=== PATIENT | female | born 1995 | race Caucasian/White ===

== ENCOUNTER 2018-05-16 17:42 | Emergency (ER) | payer MEDICAID ==
[~2018-05-16] VITALS: Ht 157.5 cm; Wt 47.6 kg
[2018-05-16 18:23] VITALS: BP 137/75
--- NOTE | 2018-05-16 19:54 | NUR ---
PT AMBULATED TO BED 5
--- NOTE | 2018-05-16 20:10 | NUR ---
PT BIB MOTHER C/O N/V/D, ORDOÑEZ. PT STATES SHE STARTED VOMITING 2 DAYS AGO, NO VOMITING TODAY, BM TODAY +DIARRHEA, +APPETITE CHANGES, ON SET OF ORDOÑEZ 2 DAYS AGO; ORDOÑEZ 7/10 PAIN, PRESSURE, NOT RADIATING AT THIS TIME. LMP 03/19/18. --BOWEL SOUNDS ACTIVE X4 QUAD. DENIES BLURRY VISION. CLEAR SPEECH. PERRLA. SKIN COOL, DRY AND INTACT. +LANUGO. --PT IN GOWN IN BED; BED IN LOWER LOCKED POSITION. ER MD MADE AWARE OF PT STATUS. PMH: DENIES RX: DENIES
--- NOTE | 2018-05-16 20:29 | NUR ---
Dr. Evans evaluating patient at bedside.
[2018-05-16] MEDS ORDERED: ONDANSETRON 4 MG ODT PO ONE (20:35)
[2018-05-16] MEDS ORDERED: KETOROLAC 60 MG/2 ML VIAL IM ONE (20:35)
[2018-05-16 21:36] VITALS: BP 128/69
--- NOTE | 2018-05-16 21:37 | NUR ---
Patient discharged with v/s stable. Written and verbal after care instructions given and explained. Patient alert, oriented and verbalized understanding of instructions. Ambulatory with steady gait. All questions addressed prior to discharge. ID band removed. Patient advised to follow up with PMD. Rx of MOTRIN, TAMIFLU, ZOFRAN, IMMODIUM given. Patient educated on indication of medication including possible reaction and side effects. Opportunity to ask questions provided and answered.
== END 2018-05-16 21:37 | disposition home or self-care (01) ==
LOC: MED 17:42
DX: R11.2 Nausea with vomiting, unspecified (principal); R19.7 Diarrhea, unspecified; R51 Headache; Z98.890 Other specified postprocedural states
CPT/HCPCS: 81002; 81025; 96372; 99283; J1885; Q0162